=== PATIENT | male | born 1935 | race Caucasian/White ===

== ENCOUNTER 2017-08-16 20:14 | Observation (INO) | payer OTHER ==
[~2017-08-16] VITALS: Ht 180.3 cm; Wt 80.5 kg
[2017-08-16] MEDS ORDERED: NITROGLYCERIN OINT 2%, 1GM TP ONE (20:57)
[2017-08-16] MEDS ORDERED: ASPIRIN 81 MG TABLET CHEW ONE (20:57)
[2017-08-16] MEDS ORDERED: SODIUM CHLORIDE FLUSH 10ML SYR IVF ONE (21:00)
[2017-08-16] MEDS ORDERED: ASPIRIN 81 MG TABLET CHEW PO ONE (21:00)
[2017-08-16] MEDS ORDERED: NITROGLYCERIN OINT 2%, 1GM TP STA (21:03)
[2017-08-16 21:19] LABS: BASOPHILS # (AUTO) 0.05 x10^3/uL (0-0.1); BASOPHILS % (AUTO) 1 % (0-1); EOSINOPHILS # (AUTO) 0.15 x10^3/uL (0-0.4); EOSINOPHILS % (AUTO) 2 % (1-7); LYMPHOCYTES # (AUTO) 1.62 x10^3/uL (1-3.4); LYMPHOCYTES % (AUTO) 26 % (22-44); MD NO; MEAN CORPUSCULAR HEMOGLOBIN 31.3 pg (27.5-34.5); MEAN CORPUSCULAR HGB CONC 33.3 g/dL (33.2-36.2); MEAN CORPUSCULAR VOLUME 93.9 fL (81-97); MONOCYTES # (AUTO) 0.47 x10^3/uL (0.2-0.8); MONOCYTES % (AUTO) 8 % (2-9); NEUTROPHILS # (AUTO) 3.86 x10^3/uL (1.8-6.8); NEUTROPHILS % (AUTO) 63 % (42-75); PLATELET COUNT 203 x10^3/uL (130-400); RED BLOOD COUNT 4.12 x10^6/uL (4.38-5.82); RED CELL DISTRIBUTION WIDTH 14.4 % (9.4-14.8)
[2017-08-16 21:27] LABS: INTERNATIONAL NORMALIZED RATIO 1.03 (0.93-1.1); PROTHROMBIN TIME 10.7 Seconds (9.6-11.5)
[2017-08-16 21:28] LABS: ALANINE AMINOTRANSFERASE 17 U/L (12-78); ALBUMIN 3.3 g/dL (3.4-5.0); ANION GAP 6 mmol/L (5-15); CALCIUM 8.3 mg/dL (8.5-10.1); CHLORIDE 106 mmol/L (98-107); CREATININE 1.37 mg/dL (0.7-1.3)
[2017-08-16 21:32] LABS: ALKALINE PHOSPHATASE 70 U/L (45-117); BILIRUBIN,TOTAL 0.3 mg/dL (0.2-1.0); TOTAL PROTEIN 6.6 g/dL (6.4-8.2); TROPONIN I < 0.015 ng/mL (0.000-0.045)
[2017-08-16] MEDS ORDERED: DONE10TA7 PO (22:04)
[2017-08-16] MEDS ORDERED: ATOR20TA9 PO (22:04)
[2017-08-16] MEDS ORDERED: TERA5CAP3 PO (22:04)
[2017-08-16] MEDS ORDERED: GABA300C10 PO (22:04)
[2017-08-16] MEDS ORDERED: LOSA100T6 PO (22:05)
[2017-08-16] MEDS ORDERED: AMLO5TAB2 PO (22:05)
[2017-08-16] MEDS ORDERED: OXCA300T PO (22:12)
[2017-08-16] MEDS ORDERED: SODIUM CHLORIDE FLUSH 10ML SYR IVF PRN (22:30)
[2017-08-16 22:46] VITALS: BP 137/69
[2017-08-17] MEDS ORDERED: MORPHINE SULFATE 4 MG/ML, 1ML IVPush PRN
[2017-08-17] MEDS ORDERED: ZOLPIDEM 5MG TABLET PO PRN
[2017-08-17 02:32] VITALS: BP 125/69
[2017-08-17 03:24] LABS: TROPONIN I < 0.015 ng/mL (0.000-0.045)
[2017-08-17 08:00] VITALS: BP 127/68
[2017-08-17] MEDS ORDERED: REGADENOSON 0.4 MG/5 ML SYRINGE ONE (08:10)
[2017-08-17 08:52] VITALS: BP 130/66
[2017-08-17] MEDS ORDERED: OXCARBAZEPINE 300MG TABLET PO SCH (09:00)
[2017-08-17] MEDS ORDERED: TERAZOSIN 5MG CAPSULE PO SCH (09:00)
[2017-08-17] MEDS ORDERED: AMLODIPINE 5 MG TABLET PO SCH (09:00)
[2017-08-17] MEDS ORDERED: LOSARTAN 50MG TABLET PO SCH (09:00)
[2017-08-17] MEDS ORDERED: DONEPEZIL 10 MG TABLET PO SCH (09:00)
[2017-08-17] MEDS ORDERED: GABAPENTIN 300 MG CAPSULE PO SCH (09:00)
[2017-08-17 09:10] LABS: TROPONIN I < 0.015 ng/mL (0.000-0.045)
[2017-08-17] MEDS ORDERED: ATORVASTATIN 20 MG TABLET PO SCH (21:00)
[2017-08-18] MEDS ORDERED: LOSARTAN 50MG TABLET PO SCH (09:00)
== END 2017-08-17 13:50 | disposition home or self-care (01) ==
LOC: ED 21:32 → INTOOBSV 22:08 → EDIP 22:08 → 5SO 22:46
PROVIDERS: ADMIT Internal Medicine; ATTEND Internal Medicine
DX: R07.89 Other chest pain (principal); E78.00 Pure hypercholesterolemia, unspecified; E11.9 Type 2 diabetes mellitus without complications; E78.5 Hyperlipidemia, unspecified; F02.80 Dementia in other diseases classified elsewhere, unspecified severity, without behavioral disturbance, psychotic disturbance, mood disturbance, and anxiety; I10 Essential (primary) hypertension; G30.9 Alzheimer's disease, unspecified; F17.200 Nicotine dependence, unspecified, uncomplicated; N40.0 Benign prostatic hyperplasia without lower urinary tract symptoms; Z85.46 Personal history of malignant neoplasm of prostate; J43.9 Emphysema, unspecified
CPT/HCPCS: 36415; 71045; 78452; 80053; 84484; 85025; 85610; 85730; 93005; 93017; 99285; A9502; C9898; G0378; J2785; 96372

== ENCOUNTER 2017-11-18 19:23 | Observation (INO) | payer MEDICARE, OTHER ==
[~2017-11-18] VITALS: Ht 177.8 cm; Wt 79.1 kg
[~2017-11-18 19:23] MED LIST: AMLO5TAB2 PO; ATOR20TA9 PO; DONE10TA7 PO; GABA300C10 PO; LOSA100T6 PO; OXCA300T PO; TERA5CAP3 PO
[2017-11-18] MEDS ORDERED: SODIUM CHLORIDE FLUSH 10ML SYR IVF ONE (20:00)
[2017-11-18] MEDS ORDERED: MORPHINE SULFATE 4 MG/ML, 1ML ONE ×2 (20:04→20:55)
[2017-11-18] MEDS: MORPHINE SULFATE 4 MG/ML, 1ML IVPush PRN ×2 (20:18→21:11)
[2017-11-18] MEDS ORDERED: NITR0.6T4 SL (20:23)
[2017-11-18] MEDS ORDERED: ASPI-515 PO (20:23)
[2017-11-18 20:26] LABS: BASOPHILS # (AUTO) 0.07 x10^3/uL (0-0.1); BASOPHILS % (AUTO) 1 % (0-1); EOSINOPHILS # (AUTO) 0.12 x10^3/uL (0-0.4); EOSINOPHILS % (AUTO) 2 % (1-7); LYMPHOCYTES # (AUTO) 1.61 x10^3/uL (1-3.4); LYMPHOCYTES % (AUTO) 28 % (22-44); MD NO; MEAN CORPUSCULAR HGB CONC 33.6 g/dL (33.2-36.2); MEAN CORPUSCULAR VOLUME 92.4 fL (81-97); MONOCYTES # (AUTO) 0.55 x10^3/uL (0.2-0.8); MONOCYTES % (AUTO) 10 % (2-9); NEUTROPHILS # (AUTO) 3.35 x10^3/uL (1.8-6.8); NEUTROPHILS % (AUTO) 59 % (42-75); PLATELET COUNT 204 x10^3/uL (130-400); RED BLOOD COUNT 4.18 x10^6/uL (4.38-5.82); RED CELL DISTRIBUTION WIDTH 14.8 % (9.4-14.8)
[2017-11-18 20:31] LABS: INTERNATIONAL NORMALIZED RATIO 1.09 (0.93-1.1); PROTHROMBIN TIME 11.2 Seconds (9.6-11.5)
[2017-11-18 20:34] LABS: ALANINE AMINOTRANSFERASE 19 U/L (12-78); ALBUMIN 3.2 g/dL (3.4-5.0); ANION GAP 9 mmol/L (5-15); CALCIUM 8.7 mg/dL (8.5-10.1); CHLORIDE 101 mmol/L (98-107); CREATININE 1.33 mg/dL (0.7-1.3)
[2017-11-18 20:39] LABS: ALKALINE PHOSPHATASE 72 U/L (45-117); BILIRUBIN,TOTAL 0.4 mg/dL (0.2-1.0); TOTAL PROTEIN 6.5 g/dL (6.4-8.2); TROPONIN I < 0.015 ng/mL (0.000-0.045)
[2017-11-18] MEDS ORDERED: SODIUM CHLORIDE 0.9%, 500ML IVBOLUS ONE (21:30)
[2017-11-18] MEDS ORDERED: KETOROLAC 30 MG/1 ML IVPush ONE (21:30)
[2017-11-18] MEDS ORDERED: KETOROLAC 30 MG/1 ML ONE (21:43)
[2017-11-18] MEDS ORDERED: OMNIPAQUE 350 MG/ML, 100ML BOTTLE ONE (21:46)
[2017-11-18] MEDS ORDERED: GABAPENTIN 300 MG CAPSULE PO ONE (22:30)
[2017-11-18 23:14] VITALS: BP 184/94
[2017-11-19 01:48] VITALS: BP 173/81
[2017-11-19 02:02] LABS: BASOPHILS # (AUTO) 0.04 x10^3/uL (0-0.1); BASOPHILS % (AUTO) 1 % (0-1); EOSINOPHILS # (AUTO) 0.16 x10^3/uL (0-0.4); EOSINOPHILS % (AUTO) 3 % (1-7); LYMPHOCYTES # (AUTO) 1.62 x10^3/uL (1-3.4); LYMPHOCYTES % (AUTO) 31 % (22-44); MD NO; MEAN CORPUSCULAR HEMOGLOBIN 30.1 pg (27.5-34.5); MEAN CORPUSCULAR HGB CONC 32.9 g/dL (33.2-36.2); MEAN CORPUSCULAR VOLUME 91.7 fL (81-97); MEAN PLATELET VOLUME 7.8 fL (7.4-10.4); MONOCYTES # (AUTO) 0.52 x10^3/uL (0.2-0.8); MONOCYTES % (AUTO) 10 % (2-9); NEUTROPHILS # (AUTO) 2.91 x10^3/uL (1.8-6.8); NEUTROPHILS % (AUTO) 56 % (42-75); PLATELET COUNT 137 x10^3/uL (130-400); RED BLOOD COUNT 3.59 x10^6/uL (4.38-5.82); RED CELL DISTRIBUTION WIDTH 14.6 % (9.4-14.8)
[2017-11-19 02:15] LABS: ALANINE AMINOTRANSFERASE 12 U/L (12-78); ALBUMIN 2.2 g/dL (3.4-5.0); ANION GAP 9 mmol/L (5-15); CHLORIDE 112 mmol/L (98-107)
[2017-11-19 02:19] LABS: ALKALINE PHOSPHATASE 49 U/L (45-117); BILIRUBIN,TOTAL 0.3 mg/dL (0.2-1.0); TOTAL PROTEIN 4.3 g/dL (6.4-8.2); TROPONIN I 0.015 ng/mL (0.000-0.045)
[2017-11-19] MEDS: POTASSIUM CHLORIDE 20 MEQ PACKET PO SCH ×3 (05:00→17:55)
[2017-11-19 06:55] VITALS: BP 165/76
[2017-11-19] MEDS ORDERED: POTASSIUM CHLORIDE 20 MEQ PACKET PO SCH (08:00)
[2017-11-19] MEDS: ASPIRIN 81 MG TABLET CHEW PO SCH (08:23)
[2017-11-19] MEDS: MAGNESIUM CHLORIDE 64 MG TABLET.DR PO SCH (08:23)
[2017-11-19] MEDS: GABAPENTIN 300 MG CAPSULE PO SCH ×3 (08:23→21:34)
[2017-11-19] MEDS: AMLODIPINE 5 MG TABLET PO SCH (08:23)
[2017-11-19] MEDS: LOSARTAN 50MG TABLET PO SCH (08:24)
[2017-11-19] MEDS: OXCARBAZEPINE 300MG TABLET PO SCH ×2 (08:24→21:34)
[2017-11-19] MEDS ORDERED: OXCARBAZEPINE 150 MG TABLET PO SCH (09:00)
[2017-11-19 10:01] LABS: TROPONIN I < 0.015 ng/mL (0.000-0.045)
[2017-11-19 13:00] VITALS: BP 163/74
[2017-11-19] MEDS ORDERED: TEMPLATE NON-FORMULARY MED. (Nitroglycerin 0.6** (Nitroglycerin**) 0.6 MG) SL PRN (14:00)
[2017-11-19] MEDS ORDERED: ZOLPIDEM 5MG TABLET PO PRN (14:00)
[2017-11-19] MEDS ORDERED: methylPREDNISolone SOD SUCC 40 MG/ML IV SCH (14:30)
[2017-11-19] MEDS: ENOXAPARIN 40 MG/0.4 ML SQ SCH (14:34)
[2017-11-19] MEDS: methylPREDNISolone SOD SUCC 125 MG/2 ML IVPush SCH ×2 (15:18→21:35)
[2017-11-19] MEDS ORDERED: NITROGLYCERIN 0.4 MG BOTTLE (25 TABS) SL PRN (15:30)
[2017-11-19] MEDS ORDERED: GABAPENTIN 300 MG CAPSULE PO SCH (16:00)
[2017-11-19 19:10] VITALS: BP 178/72
[2017-11-19] MEDS ORDERED: TERAZOSIN 5MG CAPSULE PO SCH (21:00)
[2017-11-19] MEDS ORDERED: OXCARBAZEPINE 300MG TABLET PO SCH (21:00)
[2017-11-19] MEDS ORDERED: ATORVASTATIN 20 MG TABLET PO SCH ×2 (21:00)
[2017-11-19] MEDS ORDERED: DONEPEZIL 10 MG TABLET PO SCH (21:00)
[2017-11-20 02:42] VITALS: BP 169/67
[2017-11-20 05:52] LABS: CHLORIDE 98 mmol/L (98-107)
[2017-11-20] MEDS: methylPREDNISolone SOD SUCC 125 MG/2 ML IVPush SCH ×2 (06:30→14:30)
[2017-11-20 06:41] LABS: % IRON SATURATION 24 % (20-55); ALANINE AMINOTRANSFERASE 23 U/L (12-78); ALBUMIN 3.7 g/dL (3.4-5.0); ALKALINE PHOSPHATASE 94 U/L (45-117); ANION GAP 13 mmol/L (5-15); BILIRUBIN,TOTAL 0.6 mg/dL (0.2-1.0); CALCIUM 8.5 mg/dL (8.5-10.1); CREATININE 1.51 mg/dL (0.7-1.3); FREE T4 (FREE THYROXINE) 0.93 ng/dL (0.76-1.46); IRON LEVEL 95 mcg/dL (65-175); TOTAL IRON BINDING CAPACITY 389 mcg/dL (250-450); TOTAL PROTEIN 7.4 g/dL (6.4-8.2)
[2017-11-20 07:00] VITALS: BP 139/80
[2017-11-20] MEDS: AMLODIPINE 5 MG TABLET PO SCH (08:35)
[2017-11-20] MEDS: GABAPENTIN 300 MG CAPSULE PO SCH (08:35)
[2017-11-20] MEDS: ASPIRIN 81 MG TABLET CHEW PO SCH (08:35)
[2017-11-20] MEDS: MAGNESIUM CHLORIDE 64 MG TABLET.DR PO SCH (08:35)
[2017-11-20] MEDS: POTASSIUM CHLORIDE 20 MEQ PACKET PO SCH (08:35)
[2017-11-20] MEDS: OXCARBAZEPINE 300MG TABLET PO SCH (08:36)
[2017-11-20] MEDS: LOSARTAN 50MG TABLET PO SCH (08:36)
[2017-11-20] MEDS ORDERED: TEMPLATE NON-FORMULARY MED. (Losartan Potassium** 100 MG) PO SCH (09:00)
[2017-11-20] MEDS ORDERED: DONEPEZIL 10 MG TABLET PO SCH (09:00)
[2017-11-20] MEDS ORDERED: TERAZOSIN 5MG CAPSULE PO SCH (09:00)
[2017-11-20] MEDS ORDERED: PRED20TA PO (13:45)
[2017-11-20 14:00] VITALS: BP 118/63
[2017-11-20] MEDS: ENOXAPARIN 40 MG/0.4 ML SQ SCH (14:30)
== END 2017-11-20 15:17 | disposition home or self-care (01) ==
LOC: ED 21:36 → INTOOBSV 22:21 → EDIP 22:21 → 5SO 23:03
PROVIDERS: ADMIT Emergency Medicine; ATTEND Emergency Medicine
DX: R07.89 Other chest pain (principal); I12.9 Hypertensive chronic kidney disease with stage 1 through stage 4 chronic kidney disease, or unspecified chronic kidney disease; D64.9 Anemia, unspecified; E87.6 Hypokalemia; E46 Unspecified protein-calorie malnutrition; F17.200 Nicotine dependence, unspecified, uncomplicated; E78.00 Pure hypercholesterolemia, unspecified; E11.22 Type 2 diabetes mellitus with diabetic chronic kidney disease; E11.42 Type 2 diabetes mellitus with diabetic polyneuropathy; E78.5 Hyperlipidemia, unspecified; N18.9 Chronic kidney disease, unspecified; Z85.46 Personal history of malignant neoplasm of prostate; Z79.899 Other long term (current) drug therapy
CPT/HCPCS: 36415; 71045; 71275; 80053; 83540; 83550; 83690; 83880; 84439; 84443; 84484; 85025; 85379; 85610; 85730; 93005; 96372; 96374; 96375; 96376; 99285; G0378; J1650; J1885; J2930; J7040; Q9967; 96361

== ENCOUNTER 2018-08-27 11:03 | Inpatient (IN) | payer MEDICARE, OTHER ==
[~2018-08-27] VITALS: Ht 172.7 cm; Wt 86.0 kg
[~2018-08-27 11:03] MED LIST changes: +AMLO-150 PO; -AMLO5TAB2 PO; +ASPI-515 PO; +ATOR20TA37 PO; -ATOR20TA9 PO; +LOSA100T14 PO; -LOSA100T6 PO; +NITR0.6T4 SL; -OXCA300T PO; +OXCA300T19 PO; +PRED20TA PO
[2018-08-27] MEDS ORDERED: HYDROcodone/APAP 5/325 TABLET PO ONE (11:30)
[2018-08-27] MEDS ORDERED: ONDANSETRON ODT 4 MG PO ONE (11:30)
[2018-08-27] MEDS ORDERED: KETOROLAC 30 MG/1 ML IM ONE (11:30)
[2018-08-27] MEDS ORDERED: METHOCARBAMOL 750 MG TABLET PO ONE (11:30)
[2018-08-27] MEDS ORDERED: METHOCARBAMOL 750 MG TABLET ONE (11:40)
[2018-08-27] MEDS ORDERED: KETOROLAC 30 MG/1 ML ONE (11:41)
[2018-08-27] MEDS ORDERED: HYDROcodone/APAP 5/325 TABLET ONE (11:41)
[2018-08-27] MEDS ORDERED: ONDANSETRON ODT 4 MG ONE (11:41)
--- NOTE | 2018-08-27 11:58 | NUR ---
report taken from ROBEL Tapia, pt to CT at this time.
--- NOTE | 2018-08-27 12:48 | NUR ---
pt up to bathroom, with some difficulty using own cane. pt back to bed, attached to all monitors. EDPA notified of difficulty ambulating. Pt's HR is sinus maris rate 44-52, no ectopy. EDPA Josie notified. Pt reports pain is not improved s/p meds, EDPA notified. pt a&o, resps even and unlabored. at bedside. warm blanket and pillow provided.
--- NOTE | 2018-08-27 13:08 | NUR ---
EKG ORDERED VERBALLY BY IRENE PALMER, COMPLETED BY EDT. ALEAH MENA AT BEDSIDE TO UPDATE PT WITH RESULTS AND POC.
--- NOTE | 2018-08-27 13:26 | NUR ---
pt moved to ED 33 d/t admission orders and increased acuity of care. report given at bedside to ROBEL Rojas.
[2018-08-27] MEDS ORDERED: GABAPENTIN 300 MG CAPSULE PO ONE (13:30)
[2018-08-27] MEDS ORDERED: morphine SULFATE 10 MG/ML, 1ML IVPush ONE (13:30)
[2018-08-27 13:48] LABS: BASOPHILS # (AUTO) 0.06 x10^3/uL (0-0.1); BASOPHILS % (AUTO) 1 % (0-1); EOSINOPHILS # (AUTO) 0.11 x10^3/uL (0-0.4); EOSINOPHILS % (AUTO) 2 % (1-7); LYMPHOCYTES % (AUTO) 26 % (22-44); MD NO; MEAN CORPUSCULAR HEMOGLOBIN 27.6 pg (27.5-34.5); MEAN CORPUSCULAR HGB CONC 32.1 g/dL (33.2-36.2); MEAN CORPUSCULAR VOLUME 85.9 fL (81-97); MEAN PLATELET VOLUME 7.7 fL (7.4-10.4); MONOCYTES # (AUTO) 0.59 x10^3/uL (0.2-0.8); MONOCYTES % (AUTO) 10 % (2-9); NEUTROPHILS # (AUTO) 3.73 x10^3/uL (1.8-6.8); NEUTROPHILS % (AUTO) 61 % (42-75); PLATELET COUNT 237 x10^3/uL (130-400); RED BLOOD COUNT 4.17 x10^6/uL (4.38-5.82)
--- NOTE | 2018-08-27 13:59 | NUR ---
Delay in care d/t patient being difficult stick. No other needs at this time.
[2018-08-27 14:01] LABS: CHLORIDE 105 mmol/L (98-107)
[2018-08-27 14:07] LABS: ANION GAP 6 mmol/L (5-15); CALCIUM 8.6 mg/dL (8.5-10.1); CREATININE 1.28 mg/dL (0.7-1.3)
[2018-08-27] MEDS ORDERED: GABAPENTIN 300 MG CAPSULE ONE (14:54)
[2018-08-27] MEDS ORDERED: MORPHINE SULFATE 4 MG/ML, 1ML ONE (14:54)
[2018-08-27 14:56] LABS: MICROSCOPIC AUTO
--- NOTE | 2018-08-27 14:56 | NUR ---
Report to ROBEL Fields.
--- NOTE | 2018-08-27 15:01 | NUR ---
FLOAT RN COVERING MEAL BREAK. PT MEDICATED PER ERP ORDER FOR 7/10 R JAW PAIN. PT UPDATED ON ROOM AVAILABLE, TRANSPORT SOON, POC. PT UP WITH CANE TO BR WITHOUT PROBLEM.
[2018-08-27 15:14] LABS: CULTURE INDICATED? NO
[2018-08-27 15:37] VITALS: BP 193/76
[2018-08-27] MEDS ORDERED: BACLOFEN 10 MG TABLET PO PRN (17:00)
[2018-08-27] MEDS ORDERED: CAPTOPRIL 12.5 MG TABLET PO PRN (17:00)
[2018-08-27] MEDS ORDERED: NITROGLYCERIN 0.4 MG BOTTLE (25 TABS) SL PRN (17:00)
[2018-08-27] MEDS ORDERED: ONDANSETRON ODT 4 MG PO PRN (17:00)
[2018-08-27 17:10] VITALS: BP 193/76
[2018-08-27] MEDS ORDERED: MORPHINE 30MG/30ML PCA.SYR IV PRN ×2 (17:30→17:34)
[2018-08-27 17:54] LABS: HEMOGLOBIN A1C 6.2 % (4.2-6.3)
[2018-08-27 18:30] VITALS: BP 178/75
[2018-08-27] MEDS: MORPHINE 30MG/30ML PCA.SYR IV PRN (18:35)
[2018-08-27] MEDS: ATORVASTATIN 20 MG TABLET PO SCH (19:35)
[2018-08-27] MEDS: OXCARBAZEPINE 300MG TABLET PO SCH (19:35)
[2018-08-27] MEDS: GABAPENTIN 300 MG CAPSULE PO SCH (19:35)
[2018-08-27] MEDS: LACTULOSE 10 GM/15 ML UDC PO SCH (19:37)
[2018-08-28 01:32] VITALS: BP 104/57
[2018-08-28 06:02] LABS: ANION GAP 6 mmol/L (5-15); CALCIUM 7.8 mg/dL (8.5-10.1); CHLORIDE 100 mmol/L (98-107)
[2018-08-28 06:12] LABS: BASOPHILS # (AUTO) 0.01 x10^3/uL (0-0.1); BASOPHILS % (AUTO) 0 % (0-1); EOSINOPHILS # (AUTO) 0.15 x10^3/uL (0-0.4); EOSINOPHILS % (AUTO) 2 % (1-7); LYMPHOCYTES # (AUTO) 1.32 x10^3/uL (1-3.4); LYMPHOCYTES % (AUTO) 18 % (22-44); MD NO; MEAN CORPUSCULAR HEMOGLOBIN 27.9 pg (27.5-34.5); MEAN CORPUSCULAR HGB CONC 32.4 g/dL (33.2-36.2); MEAN CORPUSCULAR VOLUME 86.3 fL (81-97); MEAN PLATELET VOLUME 7.8 fL (7.4-10.4); MONOCYTES # (AUTO) 0.53 x10^3/uL (0.2-0.8); MONOCYTES % (AUTO) 7 % (2-9); NEUTROPHILS % (AUTO) 73 % (42-75); PLATELET COUNT 198 x10^3/uL (130-400); RED BLOOD COUNT 3.66 x10^6/uL (4.38-5.82); RED CELL DISTRIBUTION WIDTH 16.3 % (9.4-14.8)
[2018-08-28 06:13] LABS: ALANINE AMINOTRANSFERASE 12 U/L (12-78); ALKALINE PHOSPHATASE 61 U/L (45-117); BILIRUBIN,TOTAL 0.7 mg/dL (0.2-1.0); CREATININE 1.74 mg/dL (0.7-1.3)
[2018-08-28 06:45] VITALS: BP 108/54
[2018-08-28] MEDS: ASPIRIN 81 MG TABLET EC PO SCH (08:39)
[2018-08-28] MEDS: GABAPENTIN 300 MG CAPSULE PO SCH ×3 (08:40→19:41)
[2018-08-28] MEDS: LOSARTAN 50MG TABLET PO SCH (08:40)
[2018-08-28] MEDS: DONEPEZIL 10 MG TABLET PO SCH (08:40)
[2018-08-28] MEDS: AMLODIPINE 5 MG TABLET PO SCH (08:40)
[2018-08-28] MEDS: OXCARBAZEPINE 300MG TABLET PO SCH ×2 (08:41→19:41)
[2018-08-28] MEDS: LACTULOSE 10 GM/15 ML UDC PO SCH ×2 (08:45→19:41)
[2018-08-28] MEDS ORDERED: ENOXAPARIN 30 MG/0.3 ML SQ SCH (09:00)
[2018-08-28] MEDS ORDERED: TERAZOSIN 5MG CAPSULE PO SCH (09:00)
[2018-08-28 14:12] VITALS: BP 109/57
[2018-08-28] MEDS: SODIUM BICARBONATE 650 MG TABLET PO SCH ×2 (15:34→19:41)
[2018-08-28] MEDS: MORPHINE 30MG/30ML PCA.SYR IV PRN (16:11)
[2018-08-28 18:35] VITALS: BP 143/70
[2018-08-28] MEDS: ATORVASTATIN 20 MG TABLET PO SCH (19:41)
[2018-08-28] MEDS ORDERED: SODIUM BICARBONATE 1 MEQ/ML PO SCH (21:00)
[2018-08-29 00:45] VITALS: BP 137/75
[2018-08-29 05:28] LABS: CHLORIDE 96 mmol/L (98-107)
[2018-08-29 05:45] LABS: % IRON SATURATION 16 % (20-55); ALANINE AMINOTRANSFERASE 13 U/L (12-78); ALBUMIN 3.3 g/dL (3.4-5.0); ALKALINE PHOSPHATASE 65 U/L (45-117); ANION GAP 7 mmol/L (5-15); BILIRUBIN,TOTAL 0.6 mg/dL (0.2-1.0); CALCIUM 8.1 mg/dL (8.5-10.1); CREATININE 1.72 mg/dL (0.7-1.3); IRON LEVEL 52 mcg/dL (65-175); TOTAL IRON BINDING CAPACITY 331 mcg/dL (250-450); TOTAL PROTEIN 6.3 g/dL (6.4-8.2)
[2018-08-29 07:05] VITALS: BP 100/56
[2018-08-29] MEDS: LOSARTAN 50MG TABLET PO SCH (09:14)
[2018-08-29] MEDS: LACTULOSE 10 GM/15 ML UDC PO SCH ×2 (09:15→19:51)
[2018-08-29] MEDS: DONEPEZIL 10 MG TABLET PO SCH (09:15)
[2018-08-29] MEDS: GABAPENTIN 300 MG CAPSULE PO SCH ×3 (09:15→19:51)
[2018-08-29] MEDS: AMLODIPINE 5 MG TABLET PO SCH (09:15)
[2018-08-29] MEDS: TERAZOSIN 2MG CAPSULE PO SCH (09:15)
[2018-08-29] MEDS: SODIUM BICARBONATE 650 MG TABLET PO SCH ×2 (09:15→19:51)
[2018-08-29] MEDS: ENOXAPARIN 40 MG/0.4 ML SQ SCH (09:16)
[2018-08-29] MEDS: OXCARBAZEPINE 300MG TABLET PO SCH ×2 (09:22→19:51)
[2018-08-29] MEDS: ASPIRIN 81 MG TABLET EC PO SCH (09:23)
[2018-08-29] MEDS ORDERED: methylPREDNISolone 4mg DOSE PACK PO SCH (12:00)
[2018-08-29 13:20] VITALS: BP 110/52
[2018-08-29 19:14] VITALS: BP 131/70
[2018-08-29] MEDS: ATORVASTATIN 20 MG TABLET PO SCH (19:51)
[2018-08-30 00:06] VITALS: BP 136/62
[2018-08-30 07:05] VITALS: BP 168/74
[2018-08-30] MEDS ORDERED: LOSARTAN 50MG TABLET PO SCH (09:00)
[2018-08-30] MEDS: OXCARBAZEPINE 300MG TABLET PO SCH ×2 (09:26→21:41)
[2018-08-30] MEDS: GABAPENTIN 300 MG CAPSULE PO SCH ×3 (09:26→22:37)
[2018-08-30] MEDS: AMLODIPINE 5 MG TABLET PO SCH (09:27)
[2018-08-30] MEDS: LOSARTAN 50MG TABLET PO SCH (09:27)
[2018-08-30] MEDS: TERAZOSIN 2MG CAPSULE PO SCH (09:27)
[2018-08-30] MEDS: DONEPEZIL 10 MG TABLET PO SCH (09:28)
[2018-08-30] MEDS: SODIUM BICARBONATE 650 MG TABLET PO SCH ×2 (09:28→21:41)
[2018-08-30] MEDS: ASPIRIN 81 MG TABLET EC PO SCH (09:28)
[2018-08-30] MEDS: LACTULOSE 10 GM/15 ML UDC PO SCH ×2 (09:28→21:41)
[2018-08-30] MEDS: FERROUS GLUCONATE 324 MG TABLET PO SCH ×2 (09:31→16:04)
[2018-08-30] MEDS: ENOXAPARIN 40 MG/0.4 ML SQ SCH (09:32)
[2018-08-30 10:00] VITALS: BP 144/62
[2018-08-30 13:14] VITALS: BP 127/55
[2018-08-30 19:40] VITALS: BP 167/68
[2018-08-30] MEDS: ATORVASTATIN 20 MG TABLET PO SCH (21:41)
[2018-08-31 00:05] VITALS: BP 176/64
[2018-08-31 05:30] LABS: BASOPHILS % (AUTO) 0 % (0-1); EOSINOPHILS # (AUTO) 0.01 x10^3/uL (0-0.4); EOSINOPHILS % (AUTO) 0 % (1-7); LYMPHOCYTES # (AUTO) 0.75 x10^3/uL (1-3.4); LYMPHOCYTES % (AUTO) 14 % (22-44); MD NO; MEAN CORPUSCULAR VOLUME 85.2 fL (81-97); MEAN PLATELET VOLUME 8.4 fL (7.4-10.4); MONOCYTES # (AUTO) 0.42 x10^3/uL (0.2-0.8); MONOCYTES % (AUTO) 8 % (2-9); NEUTROPHILS # (AUTO) 4.41 x10^3/uL (1.8-6.8); NEUTROPHILS % (AUTO) 79 % (42-75); PLATELET COUNT 184 x10^3/uL (130-400); RED BLOOD COUNT 3.59 x10^6/uL (4.38-5.82); RED CELL DISTRIBUTION WIDTH 15.7 % (9.4-14.8)
[2018-08-31 05:40] LABS: ANION GAP 4 mmol/L (5-15); CALCIUM 8.1 mg/dL (8.5-10.1); CHLORIDE 99 mmol/L (98-107)
[2018-08-31 05:41] LABS: CREATININE 1.06 mg/dL (0.7-1.3)
[2018-08-31 06:40] VITALS: BP 164/80
[2018-08-31] MEDS: ENOXAPARIN 40 MG/0.4 ML SQ SCH (07:52)
[2018-08-31] MEDS: LACTULOSE 10 GM/15 ML UDC PO SCH (07:52)
[2018-08-31] MEDS: AMLODIPINE 5 MG TABLET PO SCH (07:52)
[2018-08-31] MEDS: FERROUS GLUCONATE 324 MG TABLET PO SCH (07:53)
[2018-08-31] MEDS: ASPIRIN 81 MG TABLET EC PO SCH (07:53)
[2018-08-31] MEDS: LOSARTAN 50MG TABLET PO SCH (07:53)
[2018-08-31] MEDS: TERAZOSIN 2MG CAPSULE PO SCH (07:53)
[2018-08-31] MEDS: GABAPENTIN 300 MG CAPSULE PO SCH (07:54)
[2018-08-31] MEDS: DONEPEZIL 10 MG TABLET PO SCH (07:54)
[2018-08-31] MEDS: OXCARBAZEPINE 300MG TABLET PO SCH (07:54)
[2018-08-31] MEDS: SODIUM BICARBONATE 650 MG TABLET PO SCH (07:54)
[2018-08-31 13:52] VITALS: BP 152/72
[2018-08-31] MEDS ORDERED: SODI650T PO (14:15)
[2018-08-31] MEDS ORDERED: FERR325T16 PO (14:15)
== END 2018-08-31 15:25 | disposition home or self-care (01) | DRG 551 ==
LOC: ED 14:18 → EDIP 14:19 → ED 14:43 → 3NW 15:27 → DCLOUNGE 08-31 15:14
PROVIDERS: ADMIT Internal Medicine; ATTEND Internal Medicine
DX: M51.17 Intervertebral disc disorders with radiculopathy, lumbosacral region (principal); N17.0 Acute kidney failure with tubular necrosis; E87.1 Hypo-osmolality and hyponatremia; E11.9 Type 2 diabetes mellitus without complications; Z85.46 Personal history of malignant neoplasm of prostate; J44.9 Chronic obstructive pulmonary disease, unspecified; I45.9 Conduction disorder, unspecified; F03.90 Unspecified dementia, unspecified severity, without behavioral disturbance, psychotic disturbance, mood disturbance, and anxiety; D50.9 Iron deficiency anemia, unspecified; I10 Essential (primary) hypertension; F17.200 Nicotine dependence, unspecified, uncomplicated; E78.5 Hyperlipidemia, unspecified; N40.0 Benign prostatic hyperplasia without lower urinary tract symptoms; N28.9 Disorder of kidney and ureter, unspecified
CPT/HCPCS: 36415; 71045; 72131; 72158; 80048; 80053; 81001; 83036; 83540; 83550; 83735; 84443; 85025; 93005; 99285; G0378; J1650; J1885; J2270; J7509; Q0162

== ENCOUNTER → 2018-10-07 | Outpatient (CLI) | payer MEDICARE ==
[~2018-10-07] MED LIST changes: +FERR324T18 PO; +FERR325T16 PO; +SODI650T PO
[2018-10-07 12:15] LABS: BASOPHILS # (AUTO) 0.05 x10^3/uL (0-0.1); BASOPHILS % (AUTO) 1 % (0-1); EOSINOPHILS # (AUTO) 0.06 x10^3/uL (0-0.4); EOSINOPHILS % (AUTO) 1 % (1-7); LYMPHOCYTES % (AUTO) 23 % (22-44); MD NO; MEAN CORPUSCULAR HEMOGLOBIN 29.1 pg (27.5-34.5); MEAN CORPUSCULAR VOLUME 88.1 fL (81-97); MEAN PLATELET VOLUME 7.7 fL (7.4-10.4); MONOCYTES # (AUTO) 0.52 x10^3/uL (0.2-0.8); MONOCYTES % (AUTO) 9 % (2-9); NEUTROPHILS # (AUTO) 4.03 x10^3/uL (1.8-6.8); NEUTROPHILS % (AUTO) 67 % (42-75); PLATELET COUNT 235 x10^3/uL (130-400); RED BLOOD COUNT 4.61 x10^6/uL (4.38-5.82); RED CELL DISTRIBUTION WIDTH 20.1 % (9.4-14.8)
[2018-10-07 12:27] LABS: ALANINE AMINOTRANSFERASE 16 U/L (12-78); ALBUMIN 3.5 g/dL (3.4-5.0); ANION GAP 5 mmol/L (5-15); CHLORIDE 106 mmol/L (98-107); CREATININE 1.34 mg/dL (0.7-1.3)
[2018-10-07 12:28] LABS: INTERNATIONAL NORMALIZED RATIO 1.01 (0.93-1.1); PROTHROMBIN TIME 10.6 Seconds (9.6-11.5)
[2018-10-07 12:29] LABS: ALKALINE PHOSPHATASE 70 U/L (45-117); BILIRUBIN,TOTAL 0.5 mg/dL (0.2-1.0); TOTAL PROTEIN 6.9 g/dL (6.4-8.2)
== END | disposition home or self-care (01) ==
LOC: STAR 10:53
PROVIDERS: ATTEND Neurological Surgery
DX: Z01.818 Encounter for other preprocedural examination (principal); J44.9 Chronic obstructive pulmonary disease, unspecified; I21.9 Acute myocardial infarction, unspecified; M48.062 Spinal stenosis, lumbar region with neurogenic claudication; Z98.890 Other specified postprocedural states
CPT/HCPCS: 36415; 71046; 80053; 85025; 85610; 85730; 93005

== ENCOUNTER 2018-10-21 05:40 | Inpatient (IN) | payer MEDICARE ==
[~2018-10-21] VITALS: Ht 172.7 cm; Wt 80.1 kg
[2018-10-21] MEDS ORDERED: LACTATED RINGERS 1,000 ML IV SCH (06:14)
[2018-10-21 06:41] VITALS: BP 131/69
[2018-10-21] MEDS ORDERED: BUPIVACAINE/PF-EPI 0.5% 1:200K ONE (06:49)
[2018-10-21] MEDS ORDERED: BACITRACIN 50,000 UNIT ONE (06:49)
[2018-10-21] MEDS ORDERED: THROMBIN 5,000 UNIT VIAL TP ONE (06:49)
[2018-10-21] MEDS ORDERED: MIDAZOLAM 1 MG/ML, 2ML ONE (07:05)
[2018-10-21] MEDS ORDERED: FENTANYL PF 250 MCG/5ML ONE (07:05)
[2018-10-21] MEDS ORDERED: SUCCINYLCHOLINE 20 MG/ML, 10ML ONE (07:28)
[2018-10-21] MEDS ORDERED: EPHEDRINE 50 MG/ML, 1ML ONE (07:28)
[2018-10-21] MEDS ORDERED: CEFAZOLIN 1,000 MG ONE (07:28)
[2018-10-21] MEDS ORDERED: ROCURONIUM 10 MG/ML,10ML ONE (07:28)
[2018-10-21] MEDS ORDERED: ONDANSETRON 2MG/ML, 2ML ONE (07:28)
[2018-10-21] MEDS ORDERED: PROPOFOL 10 MG/ML, 20ML ONE (07:28)
[2018-10-21] MEDS ORDERED: FENTANYL PF 100 MCG/2ML ONE (10:15)
[2018-10-21] MEDS ORDERED: OXYcodone 5 MG/5 ML ORAL.SOL UDC ONE (10:16)
[2018-10-21] MEDS: FENTANYL PF 100 MCG/2ML IV PRN ×2 (10:17→10:25)
[2018-10-21] MEDS ORDERED: HYDROmorphone 2 MG/ML, 1ML ONE (10:25)
[2018-10-21] MEDS ORDERED: ACETAMINOPHEN 325 MG TABLET PO PRN (10:30)
[2018-10-21] MEDS ORDERED: EPHEDRINE 50 MG/ML, 1ML IVPush PRN (10:30)
[2018-10-21] MEDS ORDERED: ONDANSETRON 2MG/ML, 2ML IV PRN ×2 (10:30→12:30)
[2018-10-21] MEDS ORDERED: METOPROLOL 1 MG/ML, 5ML IV PRN (10:30)
[2018-10-21] MEDS ORDERED: OXYcodone 5 MG/5 ML ORAL.SOL UDC PO PRN (10:30)
[2018-10-21] MEDS ORDERED: HYDROcodone/APAP 7.5-325MG/15ML UDC PO PRN (10:30)
[2018-10-21] MEDS ORDERED: hydrALAzine 20 MG/ML, 1ML IV PRN (10:30)
[2018-10-21] MEDS ORDERED: MORPHINE SULFATE 4 MG/ML, 1ML IVPush PRN (10:30)
[2018-10-21] MEDS: HYDROmorphone 2 MG/ML, 1ML IVPush PRN ×2 (10:30→10:40)
[2018-10-21] MEDS ORDERED: HALOPERIDOL 5 MG/ML IV PRN (10:30)
[2018-10-21] MEDS ORDERED: MEPERIDINE/PF 25MG/0.5ML IVPush PRN (10:30)
[2018-10-21] MEDS ORDERED: LABETALOL 5MG/ML, 20ML IV PRN ×2 (10:30→12:30)
[2018-10-21] MEDS ORDERED: PROMETHAZINE 25 MG/ML, 1ML IV PRN (10:30)
[2018-10-21] MEDS ORDERED: DIAZEPAM 5 MG/ML, 2ML IVPush PRN (10:30)
[2018-10-21] MEDS ORDERED: METHOCARBAMOL 750 MG TABLET ONE (11:14)
[2018-10-21] MEDS ORDERED: METHOCARBAMOL 750 MG TABLET PO PRN ×2 (11:30→19:15)
[2018-10-21 12:00] VITALS: BP 130/72
[2018-10-21] MEDS ORDERED: DIPHENHYDRAMINE 50 MG/ML, 1ML IM PRN (12:30)
[2018-10-21] MEDS ORDERED: HYDROmorphone 2 MG/ML, 1ML IM PRN (12:30)
[2018-10-21] MEDS ORDERED: MAGNESIUM HYDROXIDE 8%, 30ML UDC PO PRN (12:30)
[2018-10-21] MEDS ORDERED: CYCLOBENZAPRINE 10 MG TABLET PO PRN (12:30)
[2018-10-21] MEDS ORDERED: DIPHENHYDRAMINE 50 MG CAPSULE PO PRN (12:30)
[2018-10-21] MEDS ORDERED: BISACODYL 10 MG SUPP PR PRN (12:30)
[2018-10-21 12:46] VITALS: BP 129/67
[2018-10-21] MEDS ORDERED: OXYcodone/APAP 5/325MG TABLET PO PRN (14:20)
[2018-10-21] MEDS: GABAPENTIN 300 MG CAPSULE PO SCH ×3 (14:57→23:26)
[2018-10-21] MEDS: CEFAZOLIN PMX 1GM/50ML 50 ML IVPB SCH ×2 (14:57→23:26)
[2018-10-21 18:45] VITALS: BP 140/75
[2018-10-21] MEDS: ATORVASTATIN 20 MG TABLET PO SCH (20:37)
[2018-10-21] MEDS: OXCARBAZEPINE 300MG TABLET PO SCH (20:37)
[2018-10-21] MEDS: NS + 20MEQ KCL 1,000 ML IV SCH (21:34)
[2018-10-21 23:43] VITALS: BP 151/79
[2018-10-22] MEDS: GABAPENTIN 300 MG CAPSULE PO SCH ×6 (02:35→23:30)
[2018-10-22 05:10] VITALS: BP 132/67
[2018-10-22 06:58] VITALS: BP 157/71
[2018-10-22] MEDS: SENNA/DOCUSATE TABLET PO SCH (07:59)
[2018-10-22] MEDS: LOSARTAN 50MG TABLET PO SCH (07:59)
[2018-10-22] MEDS: TERAZOSIN 5MG CAPSULE PO SCH (07:59)
[2018-10-22] MEDS: OXCARBAZEPINE 300MG TABLET PO SCH ×2 (08:00→20:34)
[2018-10-22] MEDS: AMLODIPINE 5 MG TABLET PO SCH (08:00)
[2018-10-22] MEDS: DONEPEZIL 10 MG TABLET PO SCH (08:00)
[2018-10-22] MEDS ORDERED: HYDR-3240 PO (08:21)
[2018-10-22] MEDS: NS + 20MEQ KCL 1,000 ML IV SCH ×2 (10:50→23:55)
[2018-10-22 14:15] VITALS: BP 131/62
[2018-10-22 19:38] VITALS: BP 145/68
[2018-10-22] MEDS: ATORVASTATIN 20 MG TABLET PO SCH (20:34)
[2018-10-22] MEDS: HYDROcodone/APAP 5/325 TABLET PO PRN (20:34)
[2018-10-23 00:30] VITALS: BP 115/64
[2018-10-23] MEDS: GABAPENTIN 300 MG CAPSULE PO SCH ×5 (03:30→21:53)
[2018-10-23] MEDS: HYDROcodone/APAP 5/325 TABLET PO PRN ×3 (05:40→20:23)
[2018-10-23 07:30] VITALS: BP 106/59
[2018-10-23] MEDS: SENNA/DOCUSATE TABLET PO SCH (09:33)
[2018-10-23] MEDS: TERAZOSIN 5MG CAPSULE PO SCH (09:33)
[2018-10-23] MEDS: LOSARTAN 50MG TABLET PO SCH (09:34)
[2018-10-23] MEDS: DONEPEZIL 10 MG TABLET PO SCH (09:34)
[2018-10-23] MEDS: AMLODIPINE 5 MG TABLET PO SCH (09:34)
[2018-10-23] MEDS: OXCARBAZEPINE 300MG TABLET PO SCH ×2 (09:34→20:23)
[2018-10-23 13:39] VITALS: BP 104/57
[2018-10-23] MEDS: NS + 20MEQ KCL 1,000 ML IV SCH ×2 (13:40→20:23)
[2018-10-23 19:35] VITALS: BP 137/65
[2018-10-23] MEDS: ATORVASTATIN 20 MG TABLET PO SCH (20:23)
[2018-10-24 00:11] VITALS: BP 144/79
[2018-10-24] MEDS: GABAPENTIN 300 MG CAPSULE PO SCH ×6 (01:43→20:31)
[2018-10-24] MEDS ORDERED: PRAMIPEXOLE 0.25MG TABLET PO PRN (08:30)
[2018-10-24 08:34] VITALS: BP 148/58
[2018-10-24] MEDS: OXCARBAZEPINE 300MG TABLET PO SCH ×2 (08:36→20:31)
[2018-10-24] MEDS: TERAZOSIN 5MG CAPSULE PO SCH (08:36)
[2018-10-24] MEDS: HYDROcodone/APAP 5/325 TABLET PO PRN (08:36)
[2018-10-24] MEDS: AMLODIPINE 5 MG TABLET PO SCH (08:37)
[2018-10-24] MEDS: LOSARTAN 50MG TABLET PO SCH (08:37)
[2018-10-24] MEDS: SENNA/DOCUSATE TABLET PO SCH (08:37)
[2018-10-24] MEDS: DONEPEZIL 10 MG TABLET PO SCH (08:37)
[2018-10-24] MEDS ORDERED: POLYETHYLENE GLYCOL 17 GM PACKET PO ONE (10:30)
[2018-10-24 13:52] VITALS: BP 141/68
[2018-10-24] MEDS: NS + 20MEQ KCL 1,000 ML IV SCH ×2 (16:20→20:31)
[2018-10-24 19:01] VITALS: BP 152/67
[2018-10-24] MEDS: ATORVASTATIN 20 MG TABLET PO SCH (20:31)
[2018-10-25 00:24] VITALS: BP 152/78
[2018-10-25] MEDS: GABAPENTIN 300 MG CAPSULE PO SCH ×6 (01:39→22:10)
[2018-10-25 08:54] VITALS: BP 151/67
[2018-10-25] MEDS: SENNA/DOCUSATE TABLET PO SCH (09:03)
[2018-10-25] MEDS: LOSARTAN 50MG TABLET PO SCH (09:03)
[2018-10-25] MEDS: OXCARBAZEPINE 300MG TABLET PO SCH ×2 (09:04→20:42)
[2018-10-25] MEDS: POLYETHYLENE GLYCOL 17 GM PACKET PO SCH (09:04)
[2018-10-25] MEDS: AMLODIPINE 5 MG TABLET PO SCH (09:04)
[2018-10-25] MEDS: TERAZOSIN 5MG CAPSULE PO SCH (09:04)
[2018-10-25] MEDS: DONEPEZIL 10 MG TABLET PO SCH (09:04)
[2018-10-25] MEDS: HYDROcodone/APAP 5/325 TABLET PO PRN ×2 (12:52→17:56)
[2018-10-25 12:53] VITALS: BP 122/63
[2018-10-25 18:49] VITALS: BP 118/58
[2018-10-25] MEDS: NS + 20MEQ KCL 1,000 ML IV SCH (19:00)
[2018-10-25] MEDS: ATORVASTATIN 20 MG TABLET PO SCH (20:42)
[2018-10-26] MEDS: GABAPENTIN 300 MG CAPSULE PO SCH ×4 (02:29→13:09)
[2018-10-26 02:32] VITALS: BP 144/70
[2018-10-26] MEDS: HYDROcodone/APAP 5/325 TABLET PO PRN ×3 (05:27→14:17)
[2018-10-26 07:36] VITALS: BP 135/63
[2018-10-26] MEDS: POLYETHYLENE GLYCOL 17 GM PACKET PO SCH (08:14)
[2018-10-26] MEDS: SENNA/DOCUSATE TABLET PO SCH (08:14)
[2018-10-26] MEDS: OXCARBAZEPINE 300MG TABLET PO SCH (08:15)
[2018-10-26] MEDS: TERAZOSIN 5MG CAPSULE PO SCH (08:15)
[2018-10-26] MEDS: DONEPEZIL 10 MG TABLET PO SCH (08:15)
[2018-10-26] MEDS: LOSARTAN 50MG TABLET PO SCH (08:15)
[2018-10-26] MEDS: AMLODIPINE 5 MG TABLET PO SCH (08:15)
[2018-10-26] MEDS: NS + 20MEQ KCL 1,000 ML IV SCH (08:20)
[2018-10-26 13:10] VITALS: BP 107/62
[2018-10-26 15:00] VITALS: BP 128/76
== END 2018-10-26 16:15 | DRG 519 ==
LOC: OUT 05:40 → 4NOR 11:46 → OUT 11:55
PROVIDERS: ADMIT Neurological Surgery; ATTEND Neurological Surgery
PROC: 0SB20ZZ Excision of Lumbar Vertebral Disc, Open Approach (ICD-10-PCS; 2018-10-21)
PROC: 00NY0ZZ Release Lumbar Spinal Cord, Open Approach (ICD-10-PCS; 2018-10-21)
PROC: 01NB0ZZ Release Lumbar Nerve, Open Approach (ICD-10-PCS; principal; 2018-10-21 07:30)
DX: M48.07 Spinal stenosis, lumbosacral region (principal); G95.29 Other cord compression; I10 Essential (primary) hypertension; E78.00 Pure hypercholesterolemia, unspecified; Z85.46 Personal history of malignant neoplasm of prostate; M19.90 Unspecified osteoarthritis, unspecified site; E11.9 Type 2 diabetes mellitus without complications; Z87.891 Personal history of nicotine dependence; Z82.61 Family history of arthritis; Z82.49 Family history of ischemic heart disease and other diseases of the circulatory system; Z82.0 Family history of epilepsy and other diseases of the nervous system; M51.16 Intervertebral disc disorders with radiculopathy, lumbar region
CPT/HCPCS: 72100; G0378; J0690; J1170; J2250; J2270; J2405; J2704; J3010; J3480; J0330; J7120

== ENCOUNTER 2019-11-04 00:33 | Observation (INO) | payer MEDICARE ==
[~2019-11-04] VITALS: Ht 180.3 cm; Wt 82.0 kg
[~2019-11-04 00:33] MED LIST changes: +HYDR-3240 PO
--- NOTE | 2019-11-04 00:42 | NUR ---
PT BIB [facility] FOR SUDDEN ONSET OF SHARP CHEST PAIN. STARTED APPROX 1.5 HOURS AGO. EKG COMPLETED, PT RESTING IN GURNEY ON MONITOR, NAD, RESP WNL, P/W/D, FCS no SOB, DENIES ADDITIONAL NEEDS AT THIS TIME, CALL LIGHT ON LAP. WCTM TOOK [address] EN ROUTE GIVEN 0.4 MG NITRO, 100 MCG FENTANYL
--- NOTE | 2019-11-04 00:56 | NUR ---
Break RN: Xray at bedside.
[2019-11-04 01:03] LABS: BASOPHILS # (AUTO) 0.08 x10^3/uL (0-0.1); BASOPHILS % (AUTO) 2 % (0-1); EOSINOPHILS # (AUTO) 0.12 x10^3/uL (0-0.4); EOSINOPHILS % (AUTO) 3 % (1-7); LYMPHOCYTES # (AUTO) 1.43 x10^3/uL (1-3.4); LYMPHOCYTES % (AUTO) 29 % (22-44); MD NO; MEAN CORPUSCULAR HEMOGLOBIN 27.1 pg (27.5-34.5); MEAN CORPUSCULAR HGB CONC 32.3 g/dL (33.2-36.2); MEAN CORPUSCULAR VOLUME 83.9 fL (81-97); MONOCYTES # (AUTO) 0.51 x10^3/uL (0.2-0.8); MONOCYTES % (AUTO) 11 % (2-9); NEUTROPHILS # (AUTO) 2.72 x10^3/uL (1.8-6.8); NEUTROPHILS % (AUTO) 56 % (42-75); PLATELET COUNT 232 x10^3/uL (130-400); RED BLOOD COUNT 3.41 x10^6/uL (4.38-5.82); RED CELL DISTRIBUTION WIDTH 16.8 % (9.4-14.8)
[2019-11-04 01:09] LABS: ALANINE AMINOTRANSFERASE 13 U/L (12-78); ALBUMIN 3.1 g/dL (3.4-5.0); ANION GAP 6 mmol/L (5-15); CALCIUM 8.4 mg/dL (8.5-10.1); CHLORIDE 107 mmol/L (98-107); CREATININE 1.69 mg/dL (0.7-1.3)
[2019-11-04 01:13] LABS: ALKALINE PHOSPHATASE 68 U/L (45-117); BILIRUBIN,TOTAL 0.2 mg/dL (0.2-1.0); TOTAL PROTEIN 6.5 g/dL (6.4-8.2); TROPONIN I < 0.015 ng/mL (0.000-0.045)
--- NOTE | 2019-11-04 01:36 | NUR ---
PT RESTING IN GURNEY, P/W/D, NAD, RESP WNL, FCS no SOB, GIVEN EXTRA WARM BLANKET FOR COMFORT. WAITING ON ADMIT BED, WCTM.
[2019-11-04] MEDS ORDERED: hydrALAzine 20 MG/ML, 1ML IVPush PRN (02:00)
[2019-11-04] MEDS ORDERED: ONDANSETRON 2MG/ML, 2ML IVPush PRN (02:00)
[2019-11-04] MEDS ORDERED: morphine SULFATE 10 MG/ML, 1ML IVPush PRN (02:00)
--- NOTE | 2019-11-04 02:07 | NUR ---
, Katy: would like update tomorrow. Pt resting in gurney after ambulating to and from restroom with a smooth and steady gait, NAD, RESP WNL, P/W/D, call light on bed, WCTM. waiting for admit bed.
[2019-11-04] MEDS ORDERED: FERR324T5 PO (02:12)
[2019-11-04] MEDS ORDERED: ASPI-515 PO (02:12)
--- NOTE | 2019-11-04 02:13 | NUR ---
Katy called and updated.
--- NOTE | 2019-11-04 02:26 | NUR ---
pt taken up to room via SCARLETT hanson, RESP WNL, VSS, P/W/D. Report given to Romero HUSTON.
[2019-11-04 03:12] VITALS: BP 164/72
[2019-11-04] MEDS ORDERED: NITROGLYCERIN OINT 2%, 1GM TP ONE (06:00)
[2019-11-04 06:08] VITALS: BP 149/66
[2019-11-04 06:37] VITALS: BP 151/76
[2019-11-04] MEDS ORDERED: REGADENOSON 0.4 MG/5 ML SYRINGE ONE (07:40)
[2019-11-04 07:48] LABS: TROPONIN I < 0.015 ng/mL (0.000-0.045)
[2019-11-04] MEDS ORDERED: LOSARTAN 100 MG TAB PO SCH (09:00)
[2019-11-04] MEDS ORDERED: OXCARBAZEPINE 300MG TABLET PO SCH (09:00)
[2019-11-04] MEDS ORDERED: AMLODIPINE 5 MG TABLET PO SCH (09:00)
[2019-11-04] MEDS ORDERED: GABAPENTIN 300 MG CAPSULE PO SCH ×2 (09:00→16:00)
[2019-11-04] MEDS ORDERED: ASPIRIN 81 MG TABLET EC PO SCH (09:00)
[2019-11-04] MEDS ORDERED: TERAZOSIN 5MG CAPSULE PO SCH (09:00)
[2019-11-04] MEDS ORDERED: DONEPEZIL 10 MG TABLET PO SCH (09:00)
[2019-11-04] MEDS ORDERED: GABAPENTIN 300 MG CAPSULE PO ONE (11:30)
[2019-11-04] MEDS ORDERED: PANT40TA3 PO (13:25)
[2019-11-04] MEDS ORDERED: ATORVASTATIN 20 MG TABLET PO SCH (21:00)
== END 2019-11-04 16:27 | disposition home or self-care (01) ==
LOC: ED 01:26 → EDIP 01:59 → INTOOBSV 01:59 → 5SO 02:34
PROVIDERS: ADMIT Internal Medicine; ATTEND Hospitalist
DX: R07.9 Chest pain, unspecified (principal); I45.9 Conduction disorder, unspecified; N40.0 Benign prostatic hyperplasia without lower urinary tract symptoms; E11.9 Type 2 diabetes mellitus without complications; E78.5 Hyperlipidemia, unspecified; I10 Essential (primary) hypertension; J44.9 Chronic obstructive pulmonary disease, unspecified; K21.9 Gastro-esophageal reflux disease without esophagitis; F03.90 Unspecified dementia, unspecified severity, without behavioral disturbance, psychotic disturbance, mood disturbance, and anxiety; F17.210 Nicotine dependence, cigarettes, uncomplicated; Z79.82 Long term (current) use of aspirin; Z79.899 Other long term (current) drug therapy
CPT/HCPCS: 36415; 71045; 78452; 80053; 83036; 83735; 84100; 84443; 84484; 85025; 93005; 93017; 93306; A9502; G0378; J2785